=== PATIENT | male | born 1940 | race Caucasian/White ===

== ENCOUNTER → 2016-11-24 | Outpatient (CLI) | payer MEDICARE | END | disposition home or self-care (01) | LOC: PCVCCLINIC 11:40 | PROVIDERS: ATTEND Internal Medicine | DX: I25.10 Atherosclerotic heart disease of native coronary artery without angina pectoris (principal); I47.1 Supraventricular tachycardia; I10 Essential (primary) hypertension; E78.5 Hyperlipidemia, unspecified; G47.33 Obstructive sleep apnea (adult) (pediatric); R56.9 Unspecified convulsions; I48.91 Unspecified atrial fibrillation; E03.9 Hypothyroidism, unspecified; Z79.82 Long term (current) use of aspirin; Z95.5 Presence of coronary angioplasty implant and graft; Z87.891 Personal history of nicotine dependence; Z88.8 Allergy status to other drugs, medicaments and biological substances | CPT/HCPCS: 80061; 93005; G0463 ==

== ENCOUNTER → 2016-11-30 | Outpatient (CLI) | payer MEDICARE ==
--- NOTE | 2016-11-30 17:09 | PCVCIMAG ---
EXAM: BILATERAL CAROTID DUPLEX INDICATION: Carotid Occlusive Disease. FINDINGS: Doppler Measurements (centimeters per second): RIGHT: Peak CCA-85, Peak ECA-76, Diastolic ICA-19, Peak ICA-86, ICA/CCA Ratio-1.0. LEFT: Peak CCA-92, Peak ECA-322, Diastolic ICA-40, Peak ICA-281, ICA/CCA Ratio-3.0. RIGHT CAROTID: The carotid bulb has moderate plaque. The proximal internal carotid artery shows <40% stenosis. The common carotid artery shows no significant stenosis. The external carotid artery shows no significant stenosis. LEFT CAROTID: The carotid bulb has moderately severe plaque. The proximal internal carotid artery shows 70-80% stenosis. The common carotid artery shows no significant stenosis. The external carotid artery shows 90% stenosis. Antegrade flow in both vertebral arteries. IMPRESSION: <40% stenosis of the right internal carotid artery with moderate plaque. 70-80% stenosis of the left internal carotid artery with moderately severe plaque. LOC:[place] [id number]
--- NOTE | 2016-12-08 09:31 | PCVCIMAG ---
APPROVED REPORT Study performed: 11/30/2016 10:23:05 EXAM: Comprehensive 2D, Doppler, and color-flow Echocardiogram Patient Location: Echo lab Status: routine BSA: 2.16 HR: 58 bpmBP: 142/72 mmHg Rhythm: Bradycardia Other Information Study Quality: Adequate Risk Factors: Cardiac Risk Factors: HTN Indications CAD Syncope 2D Dimensions LVEF(%): 50.16 (>50%) IVSd: 10.42 (7-11mm) LVDd: 49.52 mm PWd: 9.92 (7-11mm)Ascending Ao: 35.69 (22-36mm) LVDs: 36.87 (25-40mm) Left Atrium: 45.85 (27-40mm) Aortic Root: 32.91 mm LV Single Plane 4CH: 56.22 % LV Single Plane 2CH: 52.95 %Weinstein's LVEF: 54.58 % Biplane EF: 55.3 % Volumes Left Atrial Volume (Systole) Single Plane 4CH: 93.50 mLSingle Plane 2CH: 103.60 mL LA ESV Index: 48.00 mL/m2 Aortic Valve AoV Peak Williams.: 1.40 m/s AO Peak Gr.: 7.87 mmHgLVOT Max P.01 mmHg LVOT Max V: 0.71 m/s Mitral Valve E/A Ratio: 1.8 MV Decel. Time: 253.85 ms MV E Max Williams.: 0.79 m/s MV A Williams.: 0.44 m/s IVRT: 134.95 ms Pulmonary Valve PV Peak Williams.: 0.79 m/sPV Peak Gr.: 2.50 mmHg Pulmonary Vein P Vein S: 0.38 m/sP Vein A: 0.33 m/s P Vein D: 0.67 m/sP Vein A Dur.: 134.9 msec P Vein S/D Ratio: 0.57 Tricuspid Valve TR Peak Williams.: 2.75 m/s TR Peak Gr.: 30.30 mmHg Left Ventricle The left ventricle is normal size. There is normal LV segmental wall motion. There is normal left ventricular wall thickness. Left ventricular systolic function is normal. The left ventricular ejection fraction is within the normal range. LVEF is 55%. Grade II - pseudonormal filling dynamics. Right Ventricle The right ventricle is normal size. The right ventricular systolic function is normal. Atria Left atrium is moderate-severely dilated. The right atrium size is normal. Aortic Valve Mild aortic valve sclerosis. No aortic regurgitation is present. There is no aortic valvular stenosis. Mitral Valve Moderate mitral annular calcification, calcified anterior leaflet There is mild mitral valve regurgitation noted. No evidence of mitral valve stenosis. Tricuspid Valve The tricuspid valve is normal in structure. Mild tricuspid regurgitation with PAP of 37 mmHg. Pulmonic Valve The pulmonary valve is normal in structure. There is no pulmonic valvular regurgitation. Great Vessels The aortic root is normal in size. IVC is normal in size and collapses with >50% inspiration Pericardium There is no pericardial effusion. <Conclusion> Left ventricular systolic function is normal. There is normal LV segmental wall motion. LVEF is 55%. Grade II - pseudonormal filling dynamics. Left atrium is moderate-severely dilated. Mild aortic valve sclerosis. No aortic regurgitation or stenosis Moderate mitral annular calcification, calcified anterior leaflet; mild mitral valve regurgitation noted. Pulmonary artery pressure of 37mmHg There is no pericardial effusion.
== END | disposition home or self-care (01) ==
LOC: PCVCIMAG 09:44
PROVIDERS: ATTEND Internal Medicine
DX: I08.1 Rheumatic disorders of both mitral and tricuspid valves (principal); I65.23 Occlusion and stenosis of bilateral carotid arteries; I25.10 Atherosclerotic heart disease of native coronary artery without angina pectoris; I10 Essential (primary) hypertension; I47.1 Supraventricular tachycardia
CPT/HCPCS: 93306; 93880

== ENCOUNTER → 2017-01-11 | Outpatient (CLI) | payer MEDICARE | END | disposition home or self-care (01) | LOC: PCVCCLINIC 10:40 | PROVIDERS: ATTEND Internal Medicine | DX: I25.10 Atherosclerotic heart disease of native coronary artery without angina pectoris (principal); I10 Essential (primary) hypertension; I77.9 Disorder of arteries and arterioles, unspecified; E78.5 Hyperlipidemia, unspecified; I48.91 Unspecified atrial fibrillation; I65.23 Occlusion and stenosis of bilateral carotid arteries; E03.9 Hypothyroidism, unspecified; Z79.82 Long term (current) use of aspirin; Z95.5 Presence of coronary angioplasty implant and graft; Z95.1 Presence of aortocoronary bypass graft; Z87.891 Personal history of nicotine dependence; Z88.8 Allergy status to other drugs, medicaments and biological substances | CPT/HCPCS: G0463 ==

== ENCOUNTER → 2017-04-14 | Outpatient (CLI) | payer MEDICARE | END | disposition home or self-care (01) | LOC: PCVCCLINIC 10:20 | PROVIDERS: ATTEND Internal Medicine | DX: I25.10 Atherosclerotic heart disease of native coronary artery without angina pectoris (principal); I77.9 Disorder of arteries and arterioles, unspecified; I10 Essential (primary) hypertension; E78.5 Hyperlipidemia, unspecified; Z87.891 Personal history of nicotine dependence; Z79.899 Other long term (current) drug therapy; Z79.82 Long term (current) use of aspirin | CPT/HCPCS: G0463 ==

== ENCOUNTER → 2017-10-18 | Outpatient (CLI) | payer MEDICARE | END | disposition home or self-care (01) | LOC: PCVCIMAG 13:37 | DX: I65.23 Occlusion and stenosis of bilateral carotid arteries (principal); I25.10 Atherosclerotic heart disease of native coronary artery without angina pectoris; I10 Essential (primary) hypertension; E78.5 Hyperlipidemia, unspecified; Z87.891 Personal history of nicotine dependence; Z79.82 Long term (current) use of aspirin; Z79.899 Other long term (current) drug therapy | CPT/HCPCS: 36415; 80061; 93880; G0463 ==

== ENCOUNTER → 2017-11-16 | Outpatient (CLI) | payer MEDICARE ==
[~2017-11-16] MED LIST: DIAZEPAM 10 MG TABLET.; HEPARIN for ARTERIAL LINE 1,500 ML; IOHEXOL 300 MG/ML 100ML VIAL.; IOHEXOL 350 MG/ML 100 ML VIAL.; IV NORMAL SALINE 500ML BAG 500 ML; LIDOCAINE 1%/EPI 1:100,000 20 ML VIAL.; MIDAZOLAM HCL/PF 2 MG/2 ML VIAL.; fentaNYL PF VIAL 100 MCG/2 ML VIAL
== END | disposition home or self-care (01) ==
LOC: PCVCINTER 08:23
DX: I65.22 Occlusion and stenosis of left carotid artery (principal); I70.1 Atherosclerosis of renal artery; I25.10 Atherosclerotic heart disease of native coronary artery without angina pectoris; I10 Essential (primary) hypertension; I70.293 Other atherosclerosis of native arteries of extremities, bilateral legs; E78.5 Hyperlipidemia, unspecified; Z79.82 Long term (current) use of aspirin; Z79.899 Other long term (current) drug therapy; Z87.891 Personal history of nicotine dependence
CPT/HCPCS: 36223; 36225; 36252; 75630; 76937; 93458; 99152; 99153; C1751; C1760; C1769; C1894; J1644; J2250; J3010; J3490; J7040; Q9967

== ENCOUNTER → 2018-05-10 | Outpatient (CLI) | payer MEDICARE ==
[~2018-05-10] MED LIST changes: -DIAZEPAM 10 MG TABLET.; -HEPARIN for ARTERIAL LINE 1,500 ML; -IOHEXOL 300 MG/ML 100ML VIAL.; -IOHEXOL 350 MG/ML 100 ML VIAL.; -IV NORMAL SALINE 500ML BAG 500 ML; -LIDOCAINE 1%/EPI 1:100,000 20 ML VIAL.; -MIDAZOLAM HCL/PF 2 MG/2 ML VIAL.; +REGADENOSON 0.4 MG/5 ML DISP.SYRIN. IV ONE; -fentaNYL PF VIAL 100 MCG/2 ML VIAL
--- NOTE | 2018-05-10 16:53 | PCVCIMAG ---
APPROVED REPORT Imaging Protocol: Rest Tc-99m/Stress Tc-99m 1 day Study performed: 05/10/2018 09:58:09 Indication: Syncope, CAD Patient Location: Out-Patient Stress Nurse: Flavia Marie RN, Autumn Hawthorne RN [place] Tech:Levon Lopez NMGAYE Ht: 6 ft 0 in Wt: 200 lbs BSA: 2.13 m2 HR: 77 bpm BP: 152/72 mmHg BMI: 27.1 Rhythm: Sinus Rhythm Medical History Medical History: Age, Hyperlipidemia, HTN, PVD, CVD, Former Smoker Medications: Tramadol, Nexium, Xanax, Atenolol, Atorvastatin, Hyzaar, Flomax, ASA Allergies: Zetia Previous Cardiac Procedures: PCI Pretest Chest Pain Characteristics: No chest pain Exercise History: Sedentary Physical Disabilities: Uses a cane for balance Meds Held (24 hrs): Atenolol Resting Data Rest SPECT myocardial perfusion imaging was performed in supine position 45 minutes following the intravenous injection of 11 mCi of Tc-99m Sestamibi. Time of rest injection: 919 Date: 05/10/2018 Administration Route: IV Administration Site: Right AC Pharmacologic Stress Pharmacologic stress test was performed by injecting Regadenoson 0.4 mg IV push over 10-15 seconds immediately followed by the intravenous injection of 35.8 mCi of Tc-99m Sestamibi. Time of stress injection: 1030 Date: 05/10/2018 Administration Route: IV Administration Site: Right AC Gated Stress SPECT was performed 45 minutes after stress injection. The images were gated to evaluate regional wall motion and calculate left ventricular ejection fraction. Stress Test Details Stress Test: Pharmacologic stress testing performed using 0.4 mg of regadenoson per 5 mL given IV over 10 seconds. Reason for pharmacologic stress test: Uses cane. HRMax Heart Rate (APMHR): 143 bpm Resting HR: 77 bpmTarget HR (85% APMHR): 121 bpm Max HR Achieved: 96 bpm % of APMHR: 67 Recovery HR: 86 bpm BP Resting BP: 152/72 mmHg Max BP: 137/60 mmHg Recovery BP: 141/63 mmHg ECG Resting ECG: Sinus Rhythm Stress ECG: Sinus Rhythm ST Change: None Maximum ST Deviation: 0 mm Arrhythmia: PVC's Recovery ECG: Sinus Rhythm Recovery ST Change: None Recovery ST Deviation: 0 mm Recovery Arrhythmia: None Clinical Reason for Termination: Completed protocol Stress Symptoms: None Exercise duration: min 55 sec Symptoms resolved with caffeine. Stress ECG Conclusion Clinical: Non-ischemic ECG: Non-ischemic Study Quality Study: Good Study Data Post stress, the left ventricular ejection was 69%.. SSS: 0 SRS: 2 SDS: 0 TID = 0.82. Perfusion No evidence of stress induced ischemia or prior myocardial infarction. Wall Motion Normal left ventricular size and function with no regional wall motion abnormalities. Nuclear Conclusion No evidence of stress induced ischemia or prior myocardial infarction. Normal left ventricular size and function with no regional wall motion abnormalities. Post stress, the left ventricular ejection was 69%. No prior study available for comparison. Interpreted by: Michele Holden MD Electronically Approved: 05/10/2018 16:25:19 <Conclusion> Clinical: Non-ischemic ECG: Non-ischemic
== END | disposition home or self-care (01) ==
LOC: PCVCIMAG 09:20
PROVIDERS: ATTEND Internal Medicine Cardiovascular Disease
DX: I25.10 Atherosclerotic heart disease of native coronary artery without angina pectoris (principal); R55 Syncope and collapse; E78.5 Hyperlipidemia, unspecified; I10 Essential (primary) hypertension; I73.9 Peripheral vascular disease, unspecified; Z87.891 Personal history of nicotine dependence
CPT/HCPCS: 78452; 93017; A9500; J2785

== ENCOUNTER → 2018-06-21 | Outpatient (CLI) | payer MEDICARE | END | disposition home or self-care (01) | LOC: PCVCCLINIC 14:33 | PROVIDERS: ATTEND Internal Medicine | DX: I25.10 Atherosclerotic heart disease of native coronary artery without angina pectoris (principal); I65.23 Occlusion and stenosis of bilateral carotid arteries; I10 Essential (primary) hypertension; E78.5 Hyperlipidemia, unspecified; I73.9 Peripheral vascular disease, unspecified; E03.9 Hypothyroidism, unspecified; Z79.82 Long term (current) use of aspirin; Z87.891 Personal history of nicotine dependence | CPT/HCPCS: 36415; 80061; 93005; G0463 ==

== ENCOUNTER → 2018-12-30 | Outpatient (CLI) | payer MEDICARE ==
--- NOTE | 2018-12-30 14:53 | PCVCIMAG ---
APPROVED REPORT Indications Stenosis Risk Factors Hypertension: History of Smoking Surgery/Intervention Endarterectomy: left Doppler Spectral Velocity Analysis PSV / EDVPSV / EDV ECA (R) 182 / 18 cm/sECA (L) 123 / 8 cm/s dICA (R) 71 / 17 cm/sdICA (L) 52 / 18 cm/s Cong (R) 72 / 16 cm/smICA (L) 103 / 32 cm/s pICA (R) 66 / 11 cm/spICA (L) 63 / 13 cm/s Bulb (R) 112 / 16 cm/sBulb (L) 85 / 11 cm/s dCCA (R) 73 / 15 cm/sdCCA (L) 127 / 16 cm/s mCCA (R) 84 / 12 cm/smCCA (L) 133 / 17 cm/s Vert (R) 38 / 8 cm/sVert (L) 60 / 14 cm/s ICA/CCA 0.99ICA/CCA 0.81 Basic Measurements Blood Pressure: Pulses: Right Left RightLeft Brachial(Sitting) 110/73ejPz855/68mmHgTemporal Findings RIGHT CAROTID: The carotid bulb has moderate plaque. The proximal internal carotid artery shows <40% stenosis. The common carotid artery shows no significant stenosis. The external carotid artery shows 60% stenosis. LEFT CAROTID: The carotid bulb has minimal plaque. The proximal internal carotid artery shows no significant stenosis. The common carotid artery shows no significant stenosis. The external carotid artery shows no significant stenosis. Conclusion <40% stenosis of the right internal carotid artery with moderate plaque. No significant stenosis of the left internal carotid artery with minimal plaque.
== END | disposition home or self-care (01) ==
LOC: PCVCIMAG 13:10
PROVIDERS: ATTEND Internal Medicine
DX: I65.23 Occlusion and stenosis of bilateral carotid arteries (principal); I25.10 Atherosclerotic heart disease of native coronary artery without angina pectoris; I10 Essential (primary) hypertension; E78.5 Hyperlipidemia, unspecified; I73.9 Peripheral vascular disease, unspecified; Z87.891 Personal history of nicotine dependence
CPT/HCPCS: 36415; 80061; 93005; 93880; G0463

== ENCOUNTER → 2018-12-30 | Outpatient (CLI) | payer MEDICARE | END | disposition home or self-care (01) | LOC: PCVCCLINIC 15:00 | PROVIDERS: ATTEND Internal Medicine | DX: I25.10 Atherosclerotic heart disease of native coronary artery without angina pectoris (principal); I65.23 Occlusion and stenosis of bilateral carotid arteries; I10 Essential (primary) hypertension; E78.5 Hyperlipidemia, unspecified; I73.9 Peripheral vascular disease, unspecified | CPT/HCPCS: 36415; 80061; 93005; G0463 ==